=== PATIENT | male | born 1995 | race African-American/Black ===

== ENCOUNTER 2021-11-24 10:03 | Emergency (ER) | payer OTHER, SELFPAY ==
[2021-11-24 11:27] VITALS: BP 147/84; PULSE 88; RESP 16; TEMP 38.2; O2SAT 98
--- NOTE | 2021-11-24 12:04 | ED.URI ---
HPI - URI/Sore Throat General Chief Complaint: Upper Respiratory Infection Stated Complaint: gee/body aches/diarrhea Time Seen by Provider: 11/24/21 12:04 Source: patient Mode of arrival: ambulatory Limitations: no limitations History of Present Illness HPI Narrative: Yaneth Ye is a 26 yo male [id number] H who comes with sore throat body aches and fever that started yesterday. States that symptoms came on suddenly feel like he has been run over by a truck Related Data Allergies Allergy/AdvReac Type Severity Reaction Status Date / Time No Known Allergies Allergy Verified 11/24/21 11:35 Review of Systems Review of Systems: CONSTITUTIONAL: has fever, chills, sweats. EYES: Denies visual changes, redness, discharge. ENT: Denies rhinorrhea, has congestion, has sore throat, otalgia. CARDIOVASCULAR: Denies chest pain, palpitations, edema. RESPIRATORY: Denies dyspnea, wheezing, has cough GASTROINTESTINAL: Denies abdominal pain, nausea, vomiting, diarrhea. GENITOURINARY: Denies dysuria, hematuria, abnormal discharge SKIN: Denies rash or itching. NEUROLOGIC: Denies numbness, or focal weakness. PSYCHIATRIC: Denies anxiety or depression. [facility] Past Medical History Medical History No acute medical problems Social History Social History (Updated 11/24/21 @ 12:13 by Bonny Parker CNP) Smoking status: Never smoker Alcohol intake: current Substance use: current Substance use type: marijuana Comments At time of signature, I agree with nursing past medical, surgical, social and family history. There is no relevant family history pertinent to the presenting complaint. Exam Narrative: GENERAL: This is a well-nourished, well-developed patient, in mild distress. HEAD: normocephalic, atraumatic. EYES: Sclera clear/white. Vision is grossly intact. EARS: External ears normal, auditory canals clear and without drainage, TMs normal without perforation. Hearing grossly intact. NOSE: External nose normal without nasal discharge, nares with redness, mild rhinorrhea. THROAT: Mucous membranes moist, posterior pharynx erythema NECK: Neck supple, non-tender CARDIOVASCULAR: Tachycardia rate and rhythm without murmurs, gallops, or rubs. RESPIRATORY: Clear to auscultation. Breath sounds equal bilaterally. No wheezes, rales, or rhonchi. GASTROINTESTINAL: Abdomen soft, SKIN: warm, intact with no suspicious lesions or rash, good texture and turgor. NEURO: awake, alert, and oriented to person, place and time. There were no obvious focal neurologic abnormalities. Steady gait EXTREMITIES: Normal range of motion. BACK: Nontender without deformity Course Course Emergency Course: Patient here with complaints of fever and body aches Strep negative Flu test positive for a Started on ibuprofen 800 mg 1 3 times daily #30 Level of Care: Express Care Visit Vital Signs Vital signs: Vital Signs Temperature 100.7 F H 11/24/21 11:27 Pulse Rate 88 11/24/21 11:27 Respiratory Rate 16 11/24/21 11:27 Blood Pressure 147/84 H 11/24/21 11:27 Pulse Oximetry 98 11/24/21 11:27 Temperature 100.7 F H 11/24/21 11:27 Pulse Rate 88 11/24/21 11:27 Respiratory Rate 16 11/24/21 11:27 Blood Pressure 147/84 H 11/24/21 11:27 Pulse Oximetry 98 11/24/21 11:27 MDM - URI/Sore Throat Differential Diagnosis Differential diagnosis: Likely upper respiratory infection, influenza, pharyngitis and other Lab Data Labs: Influenza A Screen Positive Reference Range: Negative Influenza B Screen Negative Reference Range: Negative Strep Screen Presumptive Negative *(Reference Range: Negative)* Critical Care Time Critical Care Time Critical Care Time: No Discharge Plan Discharge Clinical Impre
== END 2021-11-24 12:34 | disposition home or self-care (01) ==
PROVIDERS: Emergency Provider Nurse Practitioner
DX: J10.1 Influenza due to other identified influenza virus with other respiratory manifestations (principal); R01.0 Benign and innocent cardiac murmurs
CPT/HCPCS: 87081; 87804; 87880; 99203; G0463

== ENCOUNTER 2025-06-03 14:15 | Emergency (ER) | payer OTHER, SELFPAY ==
[2025-06-03 14:19] VITALS: BP 147/106; PULSE 76; RESP 16; TEMP 37.3; O2SAT 99
--- NOTE | 2025-06-03 16:08 | ED_ITS ---
HPI - Ear Problem General Chief complaint: Ear Stated complaint: Ear pain Time Seen by Provider: 06/03/25 14:23 Source: patient Mode of arrival: ambulatory Limitations: no limitations History of Present Illness HPI Narrative: Patient is a 30-year-old male who presents the ED with report of left ear pain. Patient reports he was using a ear cleaning stool that he got off of [employer] today when he dropped the tool into his L ear. He has had pain in his L ear since then. Also reported some blood from his L ear. Denies significant change in his hearing. Has not taken anything for pain. Denies fevers. Related Data Allergies Allergy/AdvReac Type Severity Reaction Status Date / Time No Known Allergies Allergy Verified 06/03/25 14:22 Review of Systems Review of Systems: All systems reviewed & are unremarkable except as noted in HPI. All systems reviewed & are unremarkable except as noted in HPI and below PMFSH Past Medical History Medical History No acute medical problems Social History Social History Smoking status: Never smoker Alcohol intake: current Substance use: current Substance use type: marijuana Exam Narrative: GENERAL: Well appearing, obese with BMI of 34.0, non-toxic, in no acute distress. HEAD: Normocephalic, atraumatic. ENT: R TM clear. L TM with small punctate perforation to 11oclock region. No significant erythema or bulging of TM. Small abrasion to inferior ear canal with a very small amount of bleeding. Slight erythema noted of canal. No purulent drainage. RESPIRATORY: Airway patent, respirations nonlabored. CARDIOVASCULAR: Regular rate and rhythm MUSCULOSKELETAL: Moves all extremities. No gross deformities. SKIN: Warm, dry, normal color. NEURO: A&O X3. Speech clear. PSYCHIATRIC: Appropriate mood and affect. Normal interaction. Course Vital Signs Vital signs: Vital Signs Temperature 99.1 F 06/03/25 14:19 Pulse Rate 76 06/03/25 14:19 Respiratory Rate 16 06/03/25 14:19 Blood Pressure 147/106 H 06/03/25 14:19 Pulse Oximetry 99 06/03/25 14:19 Oxygen Delivery Room Air 06/03/25 14:19 Temperature 99.1 F 06/03/25 14:19 Pulse Rate 85 06/03/25 16:36 Respiratory Rate 16 06/03/25 16:36 Blood Pressure 155/106 H 06/03/25 16:36 Pulse Oximetry 98 06/03/25 16:36 Oxygen Delivery Room Air 06/03/25 14:19 Medical Decision Making MDM Narrative Medical decision making narrative: Exam consistent with small traumatic L TM perforation and abrasion of L EAC. Patient will be started on ofloxacin ear drops. Advised to continue Tylenol/ibuprofen as needed for pain and follow-up closely with ENT for further evaluation and to evaluate healing. Advised to avoid putting anything further into his ears. Given return precautions. He is in agreement with plan. Discharged in stable condition. Medical Records Medical records reviewed: Yes I reviewed the external patient's medical records. Vital Signs Vital Signs: Vital Signs Temperature 99.1 F 06/03/25 14:19 Pulse Rate 76 06/03/25 14:19 Respiratory Rate 16 06/03/25 14:19 Blood Pressure 147/106 H 06/03/25 14:19 Pulse Oximetry 99 06/03/25 14:19 Oxygen Delivery Room Air 06/03/25 14:19 Temperature 99.1 F 06/03/25 14:19 Pulse Rate 85 06/03/25 16:36 Respiratory Rate 16 06/03/25 16:36 Blood Pressure 155/106 H 06/03/25 16:36 Pulse Oximetry 98 06/03/25 16:36 Oxygen Delivery Room Air 06/03/25 14:19 Discharge Plan Discharge Clinical Impression: Perforation of left tympanic membrane Otitis externa Qualifiers: Otitis externa type: unspecified type Chronicity: acute Laterality: left Qualified Code(s): H60.502 - Unspecified acute noninfective otitis externa, left ear Patient Disposition: Home Condition: Stable Instructions: Antibiotic Form, Swimmer's Ear (ED), Ruptured Eardrum (ED), Earache (ED) Additional Instructions: Utilize antibiotic ear drops as prescribed over the next 1 week. Continue Tylenol/ibuprofen as needed for pain. Avoid putting anything further into your ears. Follow-up with ENT for further evaluation of healing of eardrum perforation. You will need to call the office to make an appointment. Return for new or worsening concerns. Patient Language: Guatemalan Prescriptions: New ofloxacin 0.3 % drops 10 drp EACH EAR DAILY 7 Days Qty: 5 0RF No Action ibuprofen 800 mg tablet 800 mg PO TID PRN (Reason: pain) Qty: 30 0RF Follow-up/Referrals: Andrew Hunter MD [Physician] - (ENT) UNKNOWN,DOCTOR [Primary Care Provider] - Time of Disposition: 16:18
[2025-06-03] MEDS: OFLOXACIN 0.3% OPHTH SOLN 5 ML BTL 10 DROP LEFT EAR (16:24)
[2025-06-03] MEDS: IBUPROFEN 600 MG TABLET PO (16:25)
[2025-06-03 16:36] VITALS: BP 155/106; PULSE 85; RESP 16; O2SAT 98
== END 2025-06-03 16:38 | disposition home or self-care (01) ==
PROVIDERS: Emergency Provider Physician Assistant
DX: H60.92 Unspecified otitis externa, left ear (principal); S09.22XA Traumatic rupture of left ear drum, initial encounter; W22.8XXA Striking against or struck by other objects, initial encounter
CPT/HCPCS: 99283; A9270